=== PATIENT | male | born 1990 | race Hispanic/Latino ===

== ENCOUNTER 2018-06-26 06:15 | Day surgery (SDC) | payer OTHER, SELFPAY ==
[2018-06-22 13:20] VITALS: BMI 35.9
[2018-06-26] VITALS (14 sets, daily range): BP systolic 94–145; BP diastolic 54–99; PULSE 80–125; RESP 8–16; TEMP 36.2–36.8; O2SAT 88–95; BMI 36.7
[2018-06-26] MEDS: LACTATED RINGERS 1,000 ML 42 ML IV (07:15)
--- NOTE | 2018-06-26 07:37 | PM.PREOP ---
Pre-operative Note Interval Note Pre-op Check: Yes History & Physical Reviewed by Physician and Yes Exam Performed Changes: No
--- NOTE | 2018-06-26 08:35 | SUR.OPER ---
Supine on padded OR bed, head on pillow, arms secured on padded arm boards at <90 degrees abduction, legs uncrossed, safety belt at thigh, tape over blanket over right lower leg. Left leg in the knee brace and later under control of surgeon.
[2018-06-26] MEDS: CEFAZOLIN 1 GM VIAL 2 GM IV (08:48)
[2018-06-26] MEDS: SODIUM CHLORIDE IRRIG SOLUTION 3,000 ML, EPINEPHrine 1 MG IRR (08:50)
[2018-06-26] MEDS: BUPIVACAINE 0.25% MDV 50 ML INJ (08:56)
--- NOTE | 2018-06-26 11:41 | PM.OP.1 ---
Operative Date/Time/Diagnoses Date of procedure: 06/26/18 Time of procedure: 08:01 Pre-op diagnosis: Left knee patellofemoral instability left knee patellar cartilage lesion Post-op diagnosis: other ( left knee patellofemoral instability, left knee patellar cartilage lesion, left knee loose body) Procedure & Clinicians Procedure: left knee arthroscopic loose body excision left knee patellar chondroplasty left knee medial patella femoral ligament reconstruction Same procedure as scheduled: Yes Indications: this is a 27-year-old male that sustained a patellar dislocation in September of 2017. he was managed non operatively but has persistent pain and patellar instability with apprehension. He has been unable to return to any dynamic cutting or lateral movement secondary to his patellar apprehension. He additionally has medial sided pain in the patellofemoral joint that is a minor complaint to him. He has failed physical therapy and activity modifications and desires to improve his stability. We discussed the risks, benefits, alternatives to surgery. The risks included pain, bleeding, infection, damage to nearby structures, stiffness, lack of symptom relief, increased pain, DVT, and anesthetic complications. The goals of surgery would be to restore stability. I specifically discussed with him that this is not a surgery to relieve pain and he accepted this and signed a written consent form. Surgeon: Mina Kolb Click Yes if Unassisted: Yes Anesthesia Type: General and Local Operative Notes Findings: Examination under anesthesia: Range of motion is 0-135. Stable anterior drawer, posterior drawer, Christoph's, and pivot-shift. Stable to varus and valgus stressing at 0 and 30?. Stable to dial at 30 and 90?. The patella had 4 quadrants of mobility without an endpoint laterally and 1 quadrant medially. The contralateral patella had 1 to 2 quadrants of mobility laterally. Diagnostic arthroscopy: Patella had a full-thickness cartilage lesion the lateral aspect of the medial facet. It was linear with loose edges which were debrided. The lateral facet was intact. The lateral trochlea did not show a fracture. Central trochlea through showed some linear cartilage swelling but no full-thickness or partial-thickness lesions. The medial hemijoint showed the meniscus to be intact the femoral and tibial cartilages to be intact. The notch showed the ACL and PCL to be intact. within the lateral hemijoint there was a loose osteochondral fragment that was found under the root of the meniscus and removed. The lateral meniscus was intact. The lateral femoral condyle and lateral tibial plateau were intact. Closure Type: primary Implants & Drains: 2.4 mm suture tack, Arthrex x2 7 mm x 23 mm peek interference screw, Arthrex Applied: graft(s) ( semi tendinosis allograft. Folded over it was 7 mm.) Estimated Blood Loss (mL): 10 Blood products transfused: none Tourniquet time (min): 120 Procedure in detail: The patient was met in the preop hold area on the day of the procedure. The operative extremity was signed. Consent was verified. He desired to proceed. He was brought to the operating room and surrendered to anesthesia. Once general anesthesia had been obtained he was placed in the supine position all bony prominences well padded. Examination under anesthesia was then performed and the findings can be found above. He was then prepped and draped in the standard sterile fashion. A surgical time-out was held where we confirmed the patient's procedure, identity, allergies, images. All were in agreement we proceeded An Esmarch was used to exsanguinate the limb and the tourniquet was elevated to 250 mm of mercury. A standard diagnostic arthroscopy was performed utilizing an anterolateral and anteromedial portal sites. The anteromedial portal was created under direct visualization. A standard diagnostic arthroscopy was performed. I then found the loose body in the lateral hemijoint and attempted to grasp with a typical arthroscopic grasper. This then pushed the loose body toward the popliteal hiatus. I then brought in the sucker shaver in used on suction mode and this retrieved the loose body from under the meniscus. I then brought it on top of the meniscus and placed it near the lateral gutter, But still in the joint. a [place] grasper was used and I removed it from the joint intact. It measured 10 mm by 7 mm x 3 mm. I then probed the patellar cartilage lesion and found there to be linear fissuring with loose free edge towards the center. With the sucker shaver I debrided the loose pieces of cartilage until they were stable. I then removed all fluid and instruments from the joint. A 3 cm incision was then made over the medial border the patella centered on the superior 50%. Sharp dissection was brought down to the fascia. I created full-thickness skin flaps. The fascia was then split longitudinally and I followed it down to the medial border of the patella. Blunt dissection was used to developed this layer that was just superficial to the joint capsule. Satisfied with my position I then dissected the periosteum off of the medial border the patella starting at the 50 yd line and heading superior. I cleared off a 2 cm section with a curette a knife and a rongeur to expose the medial border of the patella. I then brought in fluoroscopy to confirm my position at the 50 yd line and placed a 2.4 mm suture tack at that location. I then measured 1.5 cm superior to that and placed a 2nd suture tack. I then moved to the back table to prep the semi tendinosis graft. The graft itself measured 230 mm and once full Antonio was measured at a 7-1/2. I sized it down to a 7 by removing a section and then whipstitched both ends. I then marked the center and brought the graft into the field. I then centered the graft over the 2 suture tacks and tied the graft to the medial border the patella at these 2 locations with 6 reversed half hitches alternating posts. The graft was then firmly fixed to the medial patella and the patella moved with the graft nicely. I then palpated the medial epicondyle and made a 3 cm incision over it. Once dissection was carried down to the medial epicondyle and I felt the sulcus between the medial epicondyle and the adductor tubercle. A Beath pin was then placed at that location approximately 1 cm into the bone until it felt stable. I then took a lateral x-ray and found the pin to be too anterior. I then repositioned the pin ensuring it to travel anterior and proximal to avoid the notch. A metal instrument was placed at the insertion point of the pin into the bone and the x-ray was taken confirming that the pin was at Shottle's point. Satisfied with this I then used Bovie electrocautery to free off any soft tissue from the overlying bone. The pin was then driven through the femur and out the lateral wall. I then used a curved Christie to tunnel in the appropriate layer from the medial border the patella down to the Beath pin insertion site. I pulled on the graft and measured 33 mm of excess graft that would go into the tunnel. I then used a 7 mm Reamer and reamed to 50 mm within the femur. the sutures for the graft were then placed into the hole of the Beath pin and the Beath pin was removed from the lateral femur. I placed a curved Christie under the graft and pulled tension on it while delivering it into the femoral tunnel. I tensioned the graft tightly and independently 1 limb at a time. I then ran the knee through a full range of motion 4-[address] up to 130? of flexion and found there to be excellent isometric within the graft. I then examined the patella and found that the graft was acting as an excellent check rein allowing for 1-2 quadrants of mobility which is equal to the contralateral side. satisfied with this I visualized the femoral tunnel and placed a guidewire for the tenodesis screw. The tenodesis screw was then brought down into the tunnel and placed a line to line. I re-examined the patella in full extension and found there to be excellent isometry and stability with the graft acting as a check rein. I then cut all excess suture and irrigated the wound. The femoral incision was closed in layered fashion with 0 Vicryl deep to 0 Vicryl in the dermis and a running Monocryl in the skin. The medial fascial layers overlying the patellar were closed in a [id number] fashion imbricating a small amount of tissue. I then closed the skin with 2 O Vicryl and a running Monocryl. Arthroscopy incisions were closed with buried Monocryl. 20 cc of 0.25% Marcaine plain were placed about the wounds. Steri-Strips were applied and a sterile dressing was applied. A [id number] brace was placed. He was awakened and transferred to recovery. Complications: none Condition: stable Disposition: same day surgery Plan for aftercare: Weightbearing as tolerated with the knee locked in full extension. Range of motion 0-45 degrees for the 1st 2 weeks. I will advance his range of motion after that and his weight-bearing status. The he will work with physical therapy to ensure he does not get stiff. No x-rays are needed at follow-up
[2018-06-26] MEDS: fentaNYL 100 MCG/2 ML INJ 50 MCG IV (11:49)
[2018-06-26] MEDS: HYDROCODONE/ACET 5/325 TABLET 1 TAB PO ×2 (11:50→12:33)
== END 2018-06-26 12:50 | disposition home or self-care (01) ==
PROVIDERS: Visit Provider Orthopaedic Surgery
PROC: (CPT 29870; principal; 2018-06-26 07:45)
DX: S83.102A Unspecified subluxation of left knee, initial encounter (principal); S83.32XA Tear of articular cartilage of left knee, current, initial encounter; Y93.67 Activity, basketball
CPT/HCPCS: 27427; 29877; J0171; J0690; J1100; J1885; J2704; J3010

== ENCOUNTER → 2020-01-24 14:08 | Outpatient (CLI) | payer OTHER, SELFPAY ==
--- NOTE | 2020-01-24 | DI.MRI.S_ITS ---
PROCEDURE: MR HEAD/BRAIN WO/W CON INDICATIONS: Tremor, unspecified TECHNIQUE: Noncontrast axial T1 spin echo, axial T2 fast spin echo, sagittal and axial FLAIR, coronal T2 fast spin echo, axial gradient echo, axial diffusion and ADC through the brain. After the administration of contrast, axial and coronal 3D VIBE or T1 spin echo with fat saturation through the brain. COMPARISON: None. FINDINGS: Image quality: Excellent. CSF Spaces: Basal cisterns are patent. No extra-axial fluid collections. Ventricles are normal in size and shape. Brain: No midline shift. No intracranial bleeds or masses. No abnormal intracranial enhancement. The brainstem appears normal. Diffusion-weighted images demonstrate no acute ischemic insults. No chronic ischemic insults. Normal intravascular flow voids are present. Skull and face: Calvarial marrow is normal in signal. Orbits appear normal. Sinuses: Sinuses and mastoids appear clear. Several small maxillary sinus mucus retention cysts are noted on the right. IMPRESSION: Source of tremor is not identified. The brain parenchyma appears normal for age. Incidental note is made of several small mucus retention cysts within the right maxillary sinuse, but no active inflammation is identified. Dictated by: Raffi Flannery M.D. on 01/24/2020 at 16:21 Approved by: Raffi Flannery M.D. on 01/24/2020 at 16:23
== END ==
PROVIDERS: Referring Provider Psychiatry & Neurology Neurology; Visit Provider Psychiatry & Neurology Neurology
DX: R25.1 Tremor, unspecified (principal); G51.39 Clonic hemifacial spasm, unspecified; J34.1 Cyst and mucocele of nose and nasal sinus
CPT/HCPCS: 70553; A9579

== ENCOUNTER → 2021-05-14 12:11 | Outpatient (CLI) | payer OTHER, SELFPAY ==
--- NOTE | 2021-05-14 | DI.US.S_ITS ---
PROCEDURE: US SCROTUM INDICATIONS: Family history of malignant neoplasm of testis TECHNIQUE: Real-time scanning was performed of the scrotum and testicles, with image documentation. Color and pulse Doppler interrogation was performed of both testicles. COMPARISON: None. FINDINGS: Right: Testicle is normal in size at 5.2 x 3.1 x 3.3 cm, and homogenous in echotexture. Epididymis is normal in overall size and morphology. 11 mm epididymal cyst. No hydrocele or varicoceles. Overlying scrotal skin is normal in thickness. Left: Testicle is normal in size at 5.7 x 3.0 x 3.5 cm, and homogeneous in echotexture. Epididymis is normal in overall size and morphology. No hydrocele or varicoceles. Overlying scrotal skin is normal in thickness. Doppler: Color and pulse Doppler demonstrate normal and symmetric arterial flow in both testicles. IMPRESSION: Small right epididymal cyst; otherwiseNormal exam. appearance of the testicles bilaterally. Dictated by: Christiano Weiss [facility] Interpreted: David Gutierrez MD on 05/14/2021 at 13:32 Transcribed by: IONA on 05/14/2021 at 13:33 Approved by: David Gutierrez M.D. on 05/14/2021 at 15:20
== END ==
PROVIDERS: Referring Provider Urology; Visit Provider Urology
DX: Z13.89 Encounter for screening for other disorder (principal); N50.3 Cyst of epididymis; Z80.43 Family history of malignant neoplasm of testis
CPT/HCPCS: 76870

== ENCOUNTER 2024-01-02 06:12 | Emergency (ER) | payer OTHER, SELFPAY ==
[2024-01-02 06:20] VITALS: BP 140/72; PULSE 84; RESP 20; TEMP 37.1; BMI 40.6
--- NOTE | 2024-01-02 06:35 | ED.GENADULT ---
HPI - General Adult General Chief complaint: Eye Problems Stated complaint: left eye pain and swollen Time Seen by Provider: 01/02/24 06:24 History of Present Illness HPI narrative: Otherwise healthy 33-year-old gentleman who presents with left upper eyelid swelling. It was slightly irritated yesterday and this morning he woke up with increasing erythema. There is not a single area of inflammation to suggest a stye. Has some minor scleral injection. No visual changes appreciated. Medical history is significant for C diff last year. He reports no fevers, headaches, sinus pain or pressure Related Data Home Medications Medication Instructions Recorded Confirmed ranitidine HCl 75 mg tablet 75 mg PO DAILY PRN Acid Reflux 06/22/18 06/26/18 (Zantac) Previous Rx's Medication Instructions Recorded cephalexin 500 mg capsule 500 mg PO TID #21 caps 01/02/24 gentamicin 0.3 % eye drops 4 drp EYE-LEFT Q6H 5 days #5 mL 01/02/24 Allergies Allergy/AdvReac Type Severity Reaction Status Date / Time No Known Drug Allergies Allergy Verified 06/26/18 06:37 Review of Systems Review of Systems Narrative: Pertinent positive and negative findings as per HPI Patient History Medical History (Updated 01/02/24 @ 06:38 by Wendy Ramires MD) History of rectal bleeding IBS (irritable bowel syndrome) Closed dislocation of left patella History of frequent headaches GI bleed GERD (gastroesophageal reflux disease) Left knee pain Left shoulder pain Subluxation of left patella Dizziness History of Salmonella infection Surgical History (Updated 06/22/18 @ 13:32 by Cathy Yi RN) History of esophagogastroduodenoscopy (EGD) History of colonoscopy Social History household members: spouse Smoking Status: Former smoker alcohol intake: never Smoking Status: Former smoker Substance Use Type: does not use Exam Narrative Exam Narrative: General: Alert appropriate in no acute distress HEENT: Left upper eyelid is slightly edematous with erythema along the lash line concerning for developing eye lid cellulitis. Minor scleral injection without significant discharge. No visual acuity changes is no cervical adenopathy Respiratory: Able to speak in full sentences, no obvious respiratory distress Skin: No obvious rashes, warm and dry Neurologic: Grossly intact no obvious asymmetries or abnormalities Psych: appropriate insight and affect, cooperative Medical Decision Making [facility] Narrative Medical decision making narrative: CC: Left eyelid swelling Data collected from: patient Differential considered: Stye, conjunctivitis, preseptal cellulitis, periorbital cellulitis, retro-orbital cellulitis Exam documented above, pertinent findings include: The eyelid along the lash line is slightly erythematous and swollen. I believe this is developing preseptal cellulitis Discussion: Because symptoms have been present only 24 hours, and he has a his history of Clostridium difficile a year ago I am going to suggest we began starting with gentamicin drops. If he has not noticing improvement within 24 hours or is obviously worsening than will ask him to switch to Keflex with probiotics for GI protection. Reviewed signs and symptoms of periorbital cellulitis as well as retro-orbital cellulitis. Questions are answered and he is safe for discharge Discharge Plan Departure Patient Disposition: Home Clinical Impression: Cellulitis of left eyelid Instructions: DI for Cellulitis -- Adult Activity Restrictions/Additional Instructions: Thank you for coming in today I do believe your eyelid is developing an infection. This is not a stye, this is not an orbital cellulitis. I do not believe this is a simple conjunctivitis. With your history of C diff last year I am going to suggest that we use eyedrops to begin with. Frequently the concentration of eyedrops as enough that it is gets into the ducts around her eyelashes and can be quite effective. If you notice that symptoms are worsening after 24 hours with the eye drops then I would suggest beginning the oral antibiotics. If you do start oral antibiotics please make sure you are adding a probiotic to try and prevent recurrent episodes of C diff. If you develop vision changes, pain or pressure behind her eye ball, redness extending out and around your eye you do need to be re-evaluated Prescriptions: New gentamicin 0.3 % drops 4 drp EYE-LEFT Q6H 5 Days Qty: 5 0RF cephalexin 500 mg capsule 500 mg PO TID Qty: 21 0RF No Action ranitidine HCl [Zantac 75] 75 mg Tablet 75 mg PO DAILY PRN (Reason: Acid Reflux) Referrals: [facility] [Primary Care Provider] - Stand Alone Forms: Patient Portal/API
== END 2024-01-02 06:50 | disposition home or self-care (01) ==
PROVIDERS: Emergency Provider Emergency Medicine
DX: H00.034 Abscess of left upper eyelid (principal)
CPT/HCPCS: 99281

== ENCOUNTER 2024-06-30 20:05 | Emergency (ER) | payer OTHER, SELFPAY ==
[2024-06-30 20:13] VITALS: BP 138/93; PULSE 119; RESP 16; TEMP 36.9; O2SAT 96; BMI 40.1
--- NOTE | 2024-06-30 22:01 | ED.SKABFB ---
HPI - Skin/Abscess/Foreign Bdy General Chief complaint: Skin/Abscess/Foreign Body Stated complaint: painful cyst on buttock Time Seen by Provider: 06/30/24 21:59 Source: patient Mode of arrival: Ambulatory Limitations: no limitations History of Present Illness HPI narrative: 33-year-old male with history of hidradenitis suppurativa, C difficile history, who has developed lump in the middle of his gluteal crease. Patient states has been there for some time has been going to little bit in size and becoming more uncomfortable because of its location where he seated. Patient states no fevers or chills. No chest pain or shortness of breath no GI or urinary symptoms. Patient states feels like a bruise when it is pushed on. There was no not been any warmth, drainage or redness that he is aware of. He has had cysts in various locations in the past sometimes we will drain sometimes will not. Patient has had issues with C difficile in the past shows reluctant to start any antibiotics. No known drug allergies. Patient has had prior knee surgery. Former smoker, no regular alcohol or recreational drugs. Related Data Home Medications Medication Instructions Recorded Confirmed ranitidine HCl 75 mg tablet 75 mg PO DAILY PRN Acid Reflux 06/22/18 06/26/18 (Zantac) Previous Rx's Medication Instructions Recorded cephalexin 500 mg capsule 500 mg PO TID #21 caps 01/02/24 clindamycin HCl 300 mg capsule 300 mg PO Q6H 7 days #28 caps 06/30/24 Allergies Allergy/AdvReac Type Severity Reaction Status Date / Time No Known Drug Allergies Allergy Verified 06/26/18 06:37 Review of Systems Review of Systems ROS Unobtainable: All systems reviewed & are unremarkable except as noted in HPI and below Patient History Medical History History of rectal bleeding IBS (irritable bowel syndrome) Closed dislocation of left patella History of frequent headaches GI bleed GERD (gastroesophageal reflux disease) Left knee pain Left shoulder pain Subluxation of left patella Dizziness History of Salmonella infection Surgical History History of esophagogastroduodenoscopy (EGD) History of colonoscopy Social History household members: spouse Smoking Status: Former smoker alcohol intake: never Smoking Status: Former smoker alcohol intake frequency: other Alcohol type: other Substance Use Type: does not use Exam Narrative Exam Narrative: GENERAL: Alert and oriented x three, obese male in mild distress. HEENT: Head normocephalic, atraumatic, EOMI, pupils reactive, face symmetric, moist mucous membranes NECK: Supple, full range of motion CARDIOVASCULAR: Regular rate and rhythm without murmurs, rubs or gallops. RESPIRATORY: Breath sounds equal bilaterally, no wheezes rales or rhonchi. ABDOMEN: Soft, nontender. Normoactive bowel sounds all 4 quadrants. No guarding or rebound, rigidity, no mass, about mid way on the gluteal crease patient has with palpation what feels to be cyst on the left buttock in the soft tissue, it is little bit deeper, there is no warmth or erythema. It is only very mildly tender to touch. There is no fluctuance. There is no induration. Is not adjacent to the rectal area. : No CVA tenderness EXTREMITIES: Normal range of motion, no clubbing or edema. Neurovascularly intact NEUROLOGICAL: Cranial nerves II through XII grossly intact. Moving all extremities SKIN: Warm, dry, no petechiae, no rashes or lesions otherwise noted. Initial Vital Signs Initial Vital Signs: Vital Signs Temperature 98.4 F 06/30/24 20:13 Pulse Rate 119 H 06/30/24 20:13 Respiratory Rate 16 06/30/24 20:13 Blood Pressure 138/93 H 06/30/24 20:13 Pulse Oximetry 96 06/30/24 20:13 Oxygen Delivery Method Room Air 06/30/24 20:13 Course Vital Signs Vital signs: Vital Signs - 8 hr 06/30/24 20:13 06/30/24 22:30 Temperature 98.4 F Pulse Rate 119 H 99 H Respiratory Rate 16 16 Blood Pressure 138/93 H 145/75 H Pulse Oximetry 96 96 Oxygen Delivery Method Room Air Room Air MDM - Skin/Abscess/Foreign Bdy MDM Narrative Medical decision making narrative: 33-year-old male history of hidradenitis suppurativa. Patient exam feels consistent with a cyst. Does not appear to be infected. Discussed can do warm compresses, Tylenol/ibuprofen, follow up with General surgery for evaluation if necessary for removal. We will give a prescription for antibiotic but patient has had C diff in the past so he is going to hold this med only start if worsening or developing redness or other signs of infection. Discussed with patient can also do Sitz baths and warm compresses. Because of his history conservative measures would be the most beneficial but script was given if he starts to develop worsening symptoms. Discharge Plan Departure Patient Disposition: Home Clinical Impression: Cyst of buttocks Instructions: Hidradenitis Suppurativa Activity Restrictions/Additional Instructions: You appear to have a cyst on your buttocks consistent with your hidradenitis suppurativa history. Sometimes individuals will follow up with General surgery for excision of these this can sometimes help prevent them from reoccurring. Contacts included below. Please call to set up an appointment. Also hot compresses and Sitz baths maybe helpful 4 times daily. A prescription for antibiotics included, you do not have to start this right now I do not believe your cyst is infected currently but if you develop fevers, warmth or worsening symptoms you can start it. Because of your history of C diff I would take a probiotic while taking any antibiotics. Prescription is printed and included with your paperwork. Please return for fevers, rapidly worsening symptoms, new drainage, redness, warmth or other new or concerning changes. Prescriptions: New clindamycin HCl 300 mg capsule 300 mg PO Q6H 7 Days Qty: 28 0RF No Action cephalexin 500 mg capsule 500 mg PO TID Qty: 21 0RF ranitidine HCl [Zantac 75] 75 mg Tablet 75 mg PO DAILY PRN (Reason: Acid Reflux) Referrals: Mathew Wong MD [Physician] - Stand Alone Forms: Patient Portal/API, Work Release Note
[2024-06-30 22:30] VITALS: BP 145/75; PULSE 99; RESP 16; O2SAT 96
== END 2024-06-30 22:35 | disposition home or self-care (01) ==
PROVIDERS: Emergency Provider Emergency Medicine
DX: L72.9 Follicular cyst of the skin and subcutaneous tissue, unspecified (principal)
CPT/HCPCS: 99281